=== PATIENT | male | born 1955 | race Caucasian/White ===

== ENCOUNTER 2024-10-04 07:00 | Outpatient (CLI) | payer MEDICARE, BC, SELFPAY ==
--- NOTE | 2024-10-04 07:15 | CRLHL7_ITS ---
For Patients: As a result of the 21st Century Cures Act, medical imaging exams and procedure reports are released immediately into your electronic medical record. You may view this report before your referring provider. If you have questions, please contact your health care provider. Indication: Lumbar radiculopathy. Technique: Noncontrast MRI scan of the lumbar spine. Comparison: Lumbar spine radiograph 09/25/2024 Findings: General: Normal termination of the conus at the superior endplate of L1. No fracture or suspicious bone lesion. Normal paraspinal soft tissues. Unremarkable sacroiliac joints, incompletely imaged. Disc levels: L1-L2: Mild decreased disc signal. Anterior osteophytic ridging with Modic type 2 endplate signal change. Mild posterior broad-based disc bulge. No focal disc protrusion or nerve root impingement. Mild bilateral facet hypertrophy and ligamentum flavum thickening. Mild spinal stenosis. No foraminal stenosis. L2-L3: Mild decreased disc signal. Anterior osteophytic ridging and Modic type 2 endplate signal change. Mild posterior broad-based disc bulge. No focal disc protrusion or nerve root impingement. Mild bilateral facet hypertrophy. Mild spinal stenosis. No foraminal stenosis. L3-L4: L4 superior endplate Schmorl`s node and mild Modic type 2 endplate signal change. Mild disc space height loss and decreased disc signal. No disc protrusion or nerve root impingement. Mild bilateral facet hypertrophy. Mild spinal stenosis. No foraminal stenosis. L4-L5: Mild disc space height loss. Mild Modic type 2 endplate signal change. Posterior broad-based disc protrusion, asymmetric to the left. Bilateral facet hypertrophy and ligamentum flavum thickening, worse on the left. The combination of disc protrusion and facet hypertrophy likely impinges the left L5 nerve root (axial image 6, series 5). Severe spinal stenosis. Bilateral lateral recess stenosis. Moderate left foraminal stenosis and mild right foraminal stenosis. There is a left facet joint 8 mm synovial cyst protruding from the posterior aspect of the facet joint (sagittal image 10, series 2). L5-S1:Preserved disc space height. Right sided posterolateral focal disc extrusion abuts and displaces the right S1 nerve root (image 7, series 2 and image 11, series 5). Protruding disc material measures approximately 6 mm AP by 5 mm long by 6 mm transverse. Mild bilateral facet hypertrophy. Mild spinal stenosis. No foraminal stenosis. Impression: 1. Degenerative disc disease and facet arthrosis throughout the lumbar spine with varying degrees of spinal and foraminal stenosis. 2. L4-L5 posterior broad-based disc protrusion, asymmetric to the left and facet hypertrophy likely impinges the left L5 nerve root. Correlate with left L5 radiculopathy. 3. L5-S1 right posterolateral focal disc extrusion abutting and displacing the right S1 nerve root. Correlate with a right S1 radiculopathy. Dictated by Rodrigue Laura MD @ 10/05/2024 3:58:22 PM (Electronically Signed)
== END 2024-10-04 07:01 | disposition home or self-care (01) ==
LOC: MRI 07:01
PROVIDERS: PCP Family Medicine; Visit Provider Family Medicine
DX: M54.16 Radiculopathy, lumbar region (principal); M51.369 Other intervertebral disc degeneration, lumbar region without mention of lumbar back pain or lower extremity pain; M51.26 Other intervertebral disc displacement, lumbar region; M51.27 Other intervertebral disc displacement, lumbosacral region
CPT/HCPCS: 72148